=== PATIENT | female | born 1965 | race African-American/Black ===

== ENCOUNTER 2018-05-07 06:03 | Emergency (ER) | payer OTHER ==
[2018-05-07] MEDS ORDERED: Acetaminophen 500 MG TAB ONE ×2 (06:14→06:15)
== END 2018-05-07 06:17 | disposition home or self-care (01) ==
LOC: ERS 06:03
DX: K08.89 Other specified disorders of teeth and supporting structures (principal); F31.9 Bipolar disorder, unspecified
CPT/HCPCS: 99282

== ENCOUNTER 2018-05-14 07:10 | Emergency (ER) | payer OTHER ==
--- NOTE | 2018-05-14 08:06 | RAD ---
CHEST 2 VIEWS: HISTORY: Cough. COMPARISON: 01/03/2015. FINDINGS: Minimal 3-view parenchymal changes are noted in the right middle lobe, evidence for some mild right m iddle lobe pneumonia. Heart size is normal. The left lung is clear. Stable biapical pleural thicke carolyn. IMPRESSION: Minimal parenchymal changes in the right middle lobe, evidence for minimal right middle lobe pneumoni a. Scattered mild chronic lung changes. Atherosclerosis of the aorta. POS: [facility]
== END 2018-05-14 07:55 | disposition home or self-care (01) ==
LOC: ERS 07:10
DX: J18.9 Pneumonia, unspecified organism (principal); I10 Essential (primary) hypertension; F31.9 Bipolar disorder, unspecified; Z79.899 Other long term (current) drug therapy
CPT/HCPCS: 71046

== ENCOUNTER 2018-05-27 08:20 | Outpatient (CLI) | payer OTHER ==
--- NOTE | 2018-05-27 09:15 | RAD ---
PA AND LATERAL CHEST: HISTORY: Pneumonia followup. COMPARISON: 05/14/2018 FINDINGS: The heart size is normal. The lungs are well expanded without lobar consolidation, pneumothoraces, o r pleural effusions. There are degenerative changes in the spine. IMPRESSION: No radiographic evidence of acute cardiopulmonary process. POS: [facility]
== END 2018-05-27 08:21 | disposition home or self-care (01) ==
LOC: BICRAD 08:20
PROVIDERS: ATTEND Family Medicine
DX: J18.9 Pneumonia, unspecified organism (principal)
CPT/HCPCS: 71046

== ENCOUNTER 2019-02-08 08:27 | Emergency (ER) | payer OTHER ==
--- NOTE | 2019-02-08 09:28 | RAD ---
XR Foot Lt 3 View STANDARD HISTORY: Left foot pain and swelling FINDINGS: No fracture or dislocation is identified. There is a posterior calcaneal spur. No bony destruction or periosteal reaction is seen.
[2019-02-08] MEDS ORDERED: Ibuprofen 200 MG TAB ONE (09:56)
== END 2019-02-08 11:18 | disposition home or self-care (01) ==
LOC: ERS 08:27
DX: M79.672 Pain in left foot (principal); I10 Essential (primary) hypertension; Z79.899 Other long term (current) drug therapy

== ENCOUNTER 2019-07-03 15:42 | Emergency (ER) | payer OTHER ==
[2019-07-03] MEDS ORDERED: diphenhydrAMINE 25 MG CAP ONE (16:51)
[2019-07-03] MEDS ORDERED: predniSONE 20 MG TAB ONE (16:51)
== END 2019-07-03 16:55 | disposition home or self-care (01) ==
LOC: ERS 15:42
DX: L23.3 Allergic contact dermatitis due to drugs in contact with skin (principal); L29.9 Pruritus, unspecified; T49.8X5A Adverse effect of other topical agents, initial encounter; E78.5 Hyperlipidemia, unspecified; I10 Essential (primary) hypertension; F31.9 Bipolar disorder, unspecified; F17.210 Nicotine dependence, cigarettes, uncomplicated
CPT/HCPCS: 99282; J7512; Q0163

== ENCOUNTER 2020-03-30 15:31 | Emergency (ER) | payer OTHER | END 2020-03-30 17:30 | disposition home or self-care (01) | LOC: ERS 15:31 | DX: I88.9 Nonspecific lymphadenitis, unspecified (principal); I10 Essential (primary) hypertension; E78.5 Hyperlipidemia, unspecified; F17.210 Nicotine dependence, cigarettes, uncomplicated | CPT/HCPCS: 99283 ==

== ENCOUNTER 2022-06-18 07:21 | Day surgery (SDC) | payer OTHER ==
[2022-06-17 10:02] VITALS: BMI 40.7
[2022-06-18] MEDS ORDERED: PROPOFOL 200 MG/20 ML VIAL ONE (10:12)
[2022-06-18] MEDS ORDERED: Lidocaine 1% PF 5 ML VIAL ONE (10:12)
== END 2022-06-18 11:15 | disposition home or self-care (01) ==
LOC: SDC 07:21
PROVIDERS: ATTEND Internal Medicine Gastroenterology
PROC: 0DBL8ZX Excision of Transverse Colon, Via Natural or Artificial Opening Endoscopic, Diagnostic (ICD-10-PCS; principal; 2022-06-18)
DX: D12.3 Benign neoplasm of transverse colon (principal); K64.8 Other hemorrhoids; G47.33 Obstructive sleep apnea (adult) (pediatric); I10 Essential (primary) hypertension; M19.90 Unspecified osteoarthritis, unspecified site; E55.9 Vitamin D deficiency, unspecified; E66.9 Obesity, unspecified; R63.4 Abnormal weight loss; Z68.41 Body mass index [BMI] 40.0-44.9, adult; Z86.73 Personal history of transient ischemic attack (TIA), and cerebral infarction without residual deficits; Z87.891 Personal history of nicotine dependence; Z79.02 Long term (current) use of antithrombotics/antiplatelets; Z79.82 Long term (current) use of aspirin; Z79.899 Other long term (current) drug therapy
CPT/HCPCS: 88305; J2704

== ENCOUNTER 2022-08-23 13:10 | Emergency (ER) | payer OTHER ==
[2022-08-23] MEDS ORDERED: Acetaminophen 500 MG TAB ONE (13:43)
== END 2022-08-23 16:10 | disposition home or self-care (01) ==
LOC: ERS 13:10
DX: S20.211A Contusion of right front wall of thorax, initial encounter (principal); S80.02XA Contusion of left knee, initial encounter; I10 Essential (primary) hypertension; F17.210 Nicotine dependence, cigarettes, uncomplicated; E78.00 Pure hypercholesterolemia, unspecified; V43.52XA Car driver injured in collision with other type car in traffic accident, initial encounter; W22.11XA Striking against or struck by driver side automobile airbag, initial encounter; Z79.82 Long term (current) use of aspirin; Z79.899 Other long term (current) drug therapy
CPT/HCPCS: 36415; 71045; 84484; 93005

== ENCOUNTER 2024-12-09 08:16 | Outpatient (CLI) | payer OTHER ==
[2024-12-09 08:41] LABS: Estimated GFR - POC 64.0
[2024-12-09] MEDS ORDERED: Iopamidol 370 76% 100 ML VIAL ONE (13:13)
== END 2024-12-09 08:17 | disposition home or self-care (01) ==
LOC: CT 08:16
PROVIDERS: ATTEND Internal Medicine Critical Care Medicine
DX: R91.1 Solitary pulmonary nodule (principal)
CPT/HCPCS: 36415; 71260; 82565; Q9967